=== PATIENT | female | born 1935 | race Caucasian/White ===

== ENCOUNTER 2016-04-09 14:29 | Outpatient (CLI) | payer MEDICARE, OTHER ==
[~2016-04-09 14:29] MED LIST: ATOR40TA PO; AUBAGIO PO; CALC-506 PO; CLON0.3T PO; ESCI20TA PO; ESTR0.9T2 PO; FERR160T PO; FURO-145 PO; GABA100C PO; GEMF600T3 PO; IMIP25TA6 PO; IMIP50TA2 PO; LEVO137T PO; METF500T4 PO; METO5TAB2 PO; MODA200T30 PO; MONT10TA22 PO; MOVE FREE PO; PANT40TA2 PO; RIFA300C4 PO; SOLI5TAB PO; THEO400T PO; VIT1CAPS12 PO
== END 2016-04-09 23:59 | disposition home or self-care (01) ==
LOC: WOU 14:29
PROVIDERS: ATTEND Podiatrist Foot & Ankle Surgery
DX: E11.621 Type 2 diabetes mellitus with foot ulcer (principal); L97.511 Non-pressure chronic ulcer of other part of right foot limited to breakdown of skin; M20.5X1 Other deformities of toe(s) (acquired), right foot; S91.002A Unspecified open wound, left ankle, initial encounter; W22.8XXA Striking against or struck by other objects, initial encounter; Y92.89 Other specified places as the place of occurrence of the external cause; E11.42 Type 2 diabetes mellitus with diabetic polyneuropathy; B35.1 Tinea unguium; Z88.6 Allergy status to analgesic agent; Z88.0 Allergy status to penicillin
CPT/HCPCS: 11042; 97597; A6402

== ENCOUNTER 2016-04-23 13:34 | Outpatient (CLI) | payer MEDICARE, OTHER | END 2016-04-23 23:59 | disposition home or self-care (01) | LOC: WOU 13:34 | PROVIDERS: ATTEND Podiatrist Foot & Ankle Surgery | DX: M79.674 Pain in right toe(s) (principal); E11.9 Type 2 diabetes mellitus without complications; I10 Essential (primary) hypertension; E78.5 Hyperlipidemia, unspecified; Z88.6 Allergy status to analgesic agent; Z88.0 Allergy status to penicillin; Z88.7 Allergy status to serum and vaccine | CPT/HCPCS: G0463 ==

== ENCOUNTER 2016-05-21 13:51 | Outpatient (CLI) | payer MEDICARE, OTHER | END 2016-05-21 23:59 | disposition home health service (06) | LOC: WOU 13:51 | PROVIDERS: ATTEND Podiatrist Foot & Ankle Surgery | DX: L89.891 Pressure ulcer of other site, stage 1 (principal); S51.811A Laceration without foreign body of right forearm, initial encounter; W19.XXXA Unspecified fall, initial encounter; Y93.89 Activity, other specified; B35.1 Tinea unguium; I10 Essential (primary) hypertension; E78.5 Hyperlipidemia, unspecified; M20.42 Other hammer toe(s) (acquired), left foot; M20.41 Other hammer toe(s) (acquired), right foot; Z88.6 Allergy status to analgesic agent; Z88.0 Allergy status to penicillin; Z88.7 Allergy status to serum and vaccine; Z91.81 History of falling; R53.1 Weakness | CPT/HCPCS: A6209; A6402; G0463 ==

== ENCOUNTER 2016-07-16 14:00 | Outpatient (CLI) | payer MEDICARE, OTHER | END 2016-07-16 23:59 | disposition home health service (06) | LOC: WOU 14:00 | PROVIDERS: ATTEND Podiatrist Foot & Ankle Surgery | DX: L02.611 Cutaneous abscess of right foot (principal); L89.891 Pressure ulcer of other site, stage 1; M20.5X2 Other deformities of toe(s) (acquired), left foot; Z98.62 Peripheral vascular angioplasty status; E11.40 Type 2 diabetes mellitus with diabetic neuropathy, unspecified; Z88.6 Allergy status to analgesic agent; Z88.0 Allergy status to penicillin; Z88.7 Allergy status to serum and vaccine; I10 Essential (primary) hypertension; E78.5 Hyperlipidemia, unspecified | CPT/HCPCS: 10060; 87070; 87077; 87186; A6402 ==

== ENCOUNTER 2016-07-23 09:29 | Outpatient (CLI) | payer MEDICARE, OTHER | END 2016-07-23 23:59 | disposition home health service (06) | LOC: WOU 09:29 | PROVIDERS: ATTEND Podiatrist Foot & Ankle Surgery | DX: E11.40 Type 2 diabetes mellitus with diabetic neuropathy, unspecified (principal); M20.5X2 Other deformities of toe(s) (acquired), left foot; M20.5X1 Other deformities of toe(s) (acquired), right foot | CPT/HCPCS: G0463 ==

== ENCOUNTER 2016-08-17 11:34 | Outpatient (CLI) | payer MEDICARE, OTHER | END 2016-08-17 23:59 | disposition home or self-care (01) | LOC: WOU 11:34 | PROVIDERS: ATTEND Podiatrist Foot & Ankle Surgery | DX: S90.122A Contusion of left lesser toe(s) without damage to nail, initial encounter (principal); X58.XXXA Exposure to other specified factors, initial encounter; Y92.89 Other specified places as the place of occurrence of the external cause; E11.51 Type 2 diabetes mellitus with diabetic peripheral angiopathy without gangrene; M20.42 Other hammer toe(s) (acquired), left foot; E11.40 Type 2 diabetes mellitus with diabetic neuropathy, unspecified; M35.1 Other overlap syndromes; Z88.6 Allergy status to analgesic agent; Z88.0 Allergy status to penicillin; I10 Essential (primary) hypertension; E78.5 Hyperlipidemia, unspecified; B35.1 Tinea unguium | CPT/HCPCS: G0463 ==